=== PATIENT | female | born 1970 | race Caucasian/White ===

== ENCOUNTER 2022-10-21 06:00 | Emergency (ER) | payer OTHER ==
[~2022-10-21] VITALS: Ht 160 cm; Wt 72.6 kg
[~2022-10-21 06:00] MED LIST: CIPRO750 MG PO; TRAMADOL HCL50 MG PO
[2022-10-21] MEDS ORDERED: LOTREL 10-40 M1 EACH (06:17)
== END 2022-10-21 07:52 | disposition home or self-care (01) ==
LOC: ER 06:00
DX: J06.9 Acute upper respiratory infection, unspecified (principal)